=== PATIENT | female | born 1995 | race Two or more races ===

== ENCOUNTER 2017-02-14 21:12 | Emergency (ER) | payer MEDICAID, OTHER ==
[~2017-02-14] VITALS: Ht 162.6 cm; Wt 120.2 kg
[~2017-02-14 21:12] MED LIST: BENADRYL12.5 M1 ORAL; QUETIAPINE FUMA25 MG ORAL
--- NOTE | 2017-02-14 21:48 | Emergency Room Report ---
History of Present Illness General Chief Complaint: Abdominal Pain Source: Patient Present Illness HPI Is a 20-year-old female with no significant past medical history. She presents with chief complaint of nausea vomiting and diarrhea. Onset today. Vomiting is nonbloody nonbilious. Diarrhea is watery. She also noticed suspect her blood in her diarrhea. No recent travel. She did travel to [place] a month ago. Just finished a course of antibiotics for UTI 2 weeks ago. No abdominal pain. Just mild cramp. [place] better now. Denies any other complaint. She said that she's not to she's not sexually active. Allergies: Coded Allergies: PENICILLINS (Verified Allergy, Severe, 05/04/13) Patient History Past Medical History: see triage record, old chart reviewed, psych hx Past Surgical History: other Pertinent Family History: none Social History: Denies: smoking Last Menstrual Period: 3 MONTHS Now: No Immunizations: other Reviewed Nursing Documentation: PMH: Agreed, PSxH: Agreed Nursing Documentation-PMH Hx Asthma: Yes Review of Systems Eye: Denies: blurred vision, eye pain ENT: Denies: ear pain, nose congestion, throat swelling Respiratory: Denies: cough, shortness of breath Cardiovascular: Denies: chest pain, palpitations Gastrointestinal: Reports: diarrhea, nausea, vomiting, Denies: abdominal pain Musculoskeletal: Denies: back pain, joint pain Skin: Denies: rash Neurological: Denies: headache, numbness Endocrine: Denies: increased thirst, increased urine Hematologic/Lymphatic: Denies: easy bruising All Other Systems: negative except mentioned in HPI Physical Exam Vital Signs Date Time Temp Pulse Resp B/P Pulse Ox O2 Delivery O2 Flow Rate FiO2 02/14/17 21:31 97.9 88 16 107/61 99 Room Air vitals normal Sp02 EP Interpretation: reviewed, normal General Appearance: well appearing, no apparent distress, alert Head: normocephalic, atraumatic Eyes: bilateral eye EOMI, bilateral eye PERRL ENT: hearing grossly normal, normal pharynx Neck: full range of motion, supple, no meningismus Respiratory: chest non-tender, lungs clear, normal breath sounds Cardiovascular #1: regular rate, rhythm, no murmur Gastrointestinal: normal bowel sounds, non tender, no mass, no organomegaly, no bruit, non-distended Rectal: other - Small external hemorrhoid at 6 O'clock position. Not thrombosed. No bleeding. Musculoskeletal: back normal, gait/station normal, normal range of motion Psychiatric: mood/affect normal Skin: warm/dry Medical Decision Making Diagnostic Impression: Primary Impression: Nausea vomiting and diarrhea Additional Impressions: Morbid obesity with BMI of 45.0-49.9, adult Rectal bleeding ER Course Patient presents with nausea vomiting diarrhea. Most likely a gastroenteritis. She looks well. Well-hydrated. No evidence of acute abdomen. No abdominal pain. Rectal bleeding is probably secondary to hemorrhoidal bleeding. No evidence of thrombosis. No evidence of traction. We'll discharge home. She tolerated by mouth liquids after Zofran. patient tolerated liquid after Zofran. She did not want to wait for her urine results. She wants to leave now. Last Vital Signs Date Time Temp Pulse Resp B/P Pulse Ox O2 Delivery O2 Flow Rate FiO2 02/14/17 21:31 97.9 88 16 107/61 99 Room Air Status: improved Disposition: HOME, SELF-CARE Condition: Stable Scripts Ondansetron (Zofran) 4 Mg Tablet 4 MG ORAL Q6H Y for Nausea & Vomiting, #10 TAB 0 Refills Prov: KACY ELIZABETH M.D. 02/14/17 Additional Instructions: Followup with your DrAjit in 2 to 3 days. Return to worse. KACY ELIZABETH M.D. Feb 14, 2017 21:48
[2017-02-14 22:05] LABS: APPEARANCE,URINE CLEAR; KETONES,URINE NEGATIVE (NEGATIVE); LEUKOCYTE ESTERASE ,URINE 2+ (NEGATIVE); NITRITE,URINE NEGATIVE (NEGATIVE); PH,URINE 7 (4.5-8.0); PROTEIN,URINE 1+ (NEGATIVE); UROBILINOGEN,URINE NORMAL MG/DL (0.0-1.0)
[2017-02-14] MEDS ORDERED: ZOFRAN4 MG ORAL (22:08)
[2017-02-14 22:16] VITALS: BP 122/71
[2017-02-14 22:17] VITALS: BP 107/61
[2017-02-14 22:22] LABS: BACTERIA,URINE MODERATE /HPF; SQUAMOUS EPITHELIAL CELL,UR FEW /LPF (NONE/OCC)
== END 2017-02-14 22:16 | disposition home or self-care (01) ==
LOC: EDBD 21:12 → EMR 22:16
DX: R11.2 Nausea with vomiting, unspecified (principal); R19.7 Diarrhea, unspecified; K62.5 Hemorrhage of anus and rectum; E66.01 Morbid (severe) obesity due to excess calories; Z68.42 Body mass index [BMI] 45.0-49.9, adult; J45.909 Unspecified asthma, uncomplicated; Z88.0 Allergy status to penicillin
CPT/HCPCS: 81003; 81025; 87086; 87181; 99283

== ENCOUNTER 2017-03-24 14:36 | Emergency (ER) | payer OTHER ==
[~2017-03-24] VITALS: Ht 162.6 cm; Wt 117.9 kg
[~2017-03-24 14:36] MED LIST changes: +ZOFRAN4 MG ORAL
--- NOTE | 2017-03-24 14:54 | Emergency Room Report ---
History of Present Illness General Chief Complaint: Nausea Source: Patient, Medical Record Present Illness HPI 21YOF with nausea/vomiting this morning. Last emesis before she called EMS. No associated abd pain, fever/chills, diarrhea. Still with dysuria and foul smelling discharge. Previous C/section; no other surgical history Went to [place] in January ER visit here February 14: Had UTI, susceptible to Macrobid which was called in Rx for her. Completed Abx Allergies: Coded Allergies: MORPHINE (Unverified Allergy, Severe, Shortness of Breath, 03/24/17) PENICILLINS (Verified Allergy, Severe, 05/04/13) LEVOFLOXACIN (Unverified Allergy, Intermediate, Rash, 03/24/17) SULFAMETHOXAZOLE (Unverified Allergy, Intermediate, Rash, 03/24/17) TRIMETHOPRIM (Unverified Allergy, Intermediate, Rash, 03/24/17) Patient History Past Medical History: none Past Surgical History: Pertinent Family History: none Social History: Denies: alcohol use, drug use, smoking Now: No Immunizations: UTD Reviewed Nursing Documentation: PMH: Agreed, PSxH: Agreed Nursing Documentation-PMH Hx Asthma: Yes History Of Psychiatric Problem: Yes - bi-polar Review of Systems All Other Systems: negative except mentioned in HPI Physical Exam Vital Signs Date Time Temp Pulse Resp B/P Pulse Ox O2 Delivery O2 Flow Rate FiO2 03/24/17 14:30 99.0 100 18 130/86 99 Room Air Sp02 EP Interpretation: reviewed, normal General Appearance: normal inspection, well appearing, no apparent distress, alert, GCS 15, non-toxic, obese Head: normocephalic, atraumatic Eyes: bilateral eye EOMI, bilateral eye PERRL ENT: normal ENT inspection, hearing grossly normal, normal voice Neck: normal inspection, full range of motion, supple, no bony tend Respiratory: normal inspection, lungs clear, normal breath sounds, no respiratory distress, no retraction, no wheezing Cardiovascular #1: regular rate, rhythm, no edema Gastrointestinal: normal inspection, normal bowel sounds, non tender, soft, no guarding, no hernia Genitourinary: no CVA tenderness Musculoskeletal: normal inspection, back normal, normal range of motion, Claribel' s Sign negative Neurologic: normal inspection, alert, oriented x3, responsive, color blender III-XII nml as tested, motor strength/tone normal, speech normal Psychiatric: normal inspection, judgement/insight normal, mood/affect normal Skin: normal inspection, normal color, no rash, warm/dry Medical Decision Making Diagnostic Impression: Primary Impression: Nausea and vomiting in adult patient Additional Impression: Dysuria ER Course 21YOF with nausea, dysuria - VSS. Afebrile - Abd non-focal - tolerating PO in ED. No vomiting. - Not - UA with some bacteria. No LE or nitrites - Will tx with flagyl for ?BV PMD followup DC home Last Vital Signs Date Time Temp Pulse Resp B/P Pulse Ox O2 Delivery O2 Flow Rate FiO2 03/24/17 14:30 99.0 100 18 130/86 99 Room Air Status: improved Disposition: HOME, SELF-CARE Scripts Ondansetron Odt* (ZOFRAN ODT*) 4 Mg Tab.rapdis 4 MG ORAL BID Y for Nausea & Vomiting for 7 Days, #14 TAB 0 Refills Prov: BARBARA BAUTISTA M.D. 03/24/17 Metronidazole* (FLAGYL*) 500 Mg Tablet 500 MG ORAL BID for 7 Days, #14 TAB Prov: BARBARA BAUTISTA M.D. 03/24/17 BARBARA BAUTISTA M.D. Mar 24, 2017 14:54
[2017-03-24 15:15] LABS: APPEARANCE,URINE CLEAR; KETONES,URINE NEGATIVE (NEGATIVE); LEUKOCYTE ESTERASE ,URINE 1+ (NEGATIVE); NITRITE,URINE NEGATIVE (NEGATIVE); PH,URINE 6 (4.5-8.0); PROTEIN,URINE 2+ (NEGATIVE); UROBILINOGEN,URINE NORMAL MG/DL (0.0-1.0)
[2017-03-24 15:24] LABS: BACTERIA,URINE FEW /HPF; RBC,URINE 0-2 /HPF (0 - 2); SQUAMOUS EPITHELIAL CELL,UR FEW /LPF (NONE/OCC)
[2017-03-24] MEDS ORDERED: ZOFRAN ODT4 MG ORAL (15:47)
[2017-03-24] MEDS ORDERED: METRONIDAZOLE500 MG ORAL (15:47)
[2017-03-24 16:10] VITALS: BP 121/79
== END 2017-03-24 16:09 | disposition home or self-care (01) ==
LOC: EDBD 14:36 → EMR 14:52
DX: R11.2 Nausea with vomiting, unspecified (principal); R30.0 Dysuria; Z88.2 Allergy status to sulfonamides; Z88.6 Allergy status to analgesic agent; Z88.0 Allergy status to penicillin; J45.909 Unspecified asthma, uncomplicated
CPT/HCPCS: 80300; 81003; 81025; 96372; 99284; J2405

== ENCOUNTER 2017-09-24 13:51 | Emergency (ER) | payer OTHER ==
[~2017-09-24] VITALS: Ht 162.6 cm; Wt 127.0 kg
[~2017-09-24 13:51] MED LIST changes: +ABILIFY2 MG ORAL; +ALBUTEROL2.5 MG/3 M INH; +LEXAPRO10 MG ORAL; +METRONIDAZOLE500 MG ORAL; +ZOFRAN ODT4 MG ORAL
--- NOTE | 2017-09-24 14:41 | Emergency Room Report ---
History of Present Illness General Chief Complaint: Upper Respiratory Illness Source: EMS Present Illness HPI Pt. presents to the ED c/o cough, nasal congestion, subjective fevers, and chills x 2 days. pt. reports increased phlegm , sore throat and painful coughing which she rates as 6/10 in severity. pt. reports multiple ill contacts. pt. denies taking OTC medications for her symptoms. pt. did not have flu vaccination this season. denies body aches. Denies wheezing, Denies neck pain or stiffness, photophobia, or headaches.Denies CP, Palpitations, LOC, AMS, dizziness, Changes in Vision, Sensation, paresthesias, or a sudden severe headache. Allergies: Coded Allergies: LEVOFLOXACIN (Verified Allergy, Unknown, 09/24/17) MORPHINE (Verified Allergy, Unknown, 09/24/17) PENICILLINS (Verified Allergy, Unknown, 09/24/17) SULFAMETHOXAZOLE (Verified Allergy, Unknown, 09/24/17) TRIMETHOPRIM (Verified Allergy, Unknown, 09/24/17) Patient History Past Medical History: see triage record, psych hx - anxiety Past Surgical History: none Pertinent Family History: none Last Menstrual Period: Depoprovera Now: No Reviewed Nursing Documentation: PMH: Agreed, PSxH: Agreed Nursing Documentation-PMH Hx Asthma: Yes Review of Systems All Other Systems: negative except mentioned in HPI Physical Exam Vital Signs Date Time Temp Pulse Resp B/P (MAP) Pulse Ox O2 Delivery O2 Flow Rate FiO2 09/24/17 13:46 98.6 111 22 138/89 99 Room Air Sp02 EP Interpretation: reviewed, normal General Appearance: no apparent distress, alert, GCS 15, non-toxic Head: normocephalic, atraumatic ENT: hearing grossly normal, normal voice Neck: full range of motion, no meningismus, no bony tend Respiratory: chest non-tender, lungs clear, normal breath sounds, speaking full sentences Cardiovascular #1: regular rate, rhythm Musculoskeletal: back normal, gait/station normal, normal range of motion, non- tender Neurologic: alert, oriented x3, responsive, motor strength/tone normal, sensory intact, speech normal, grossly normal Psychiatric: judgement/insight normal, other - Very Flat affect. Skin: normal color, no rash, warm/dry, well hydrated Lymphatic: no adenopathy Medical Decision Making PA Attestation Dr. Richardson is my supervising Physician whom patient management has been discussed with. Diagnostic Impression: Primary Impression: Upper respiratory infection Qualified Codes: J06.9 - Acute upper respiratory infection, unspecified ER Course Pt. presents to the ED c/o cough, nasal congestion, subjective fevers, and chills x 2 days. pt. reports increased phlegm , sore throat and painful coughing which she rates as 6/10 in severity. pt. reports multiple ill contacts. pt. denies taking OTC medications for her symptoms. pt. did not have flu vaccination this season. denies body aches. Denies wheezing, Denies neck pain or stiffness, photophobia, or headaches.Denies CP, Palpitations, LOC, AMS, dizziness, Changes in Vision, Sensation, paresthesias, or a sudden severe headache. Ddx considered but are not limited to URI, pneumonia, PE, strep pharyngitis, meningitis. Vital signs: Pt. is afebrile, the remaining VS are WNL H&PE are most consistent with URI- no meningeal signs, oropharynx is not involved, no evidence of bacterial infection at this time. ORDERS: none required at this time, the diagnosis is clinical ED INTERVENTIONS: None required at this time. --PT. EDUCATION: Discussed antibiotic resistance with inappropriate prescribing of antibiotics for viral illnesses. Discussed signs and symptoms to indicate viral illness versus bacterial illness. DISCHARGE: At this time pt. is stable for d/c to home. Will provide printed patient care instructions, and any necessary prescriptions. Care plan and follow up instructions have been discussed with the patient prior to discharge. Last Vital Signs Date Time Temp Pulse Resp B/P (MAP) Pulse Ox O2 Delivery O2 Flow Rate FiO2 09/24/17 13:53 111 22 Room Air 09/24/17 13:46 98.6 138/89 99 Disposition: HOME, SELF-CARE Condition: Stable Scripts Acetaminophen* (TYLENOL EXTRA STRENGTH*) 500 Mg Tablet 500 MG ORAL Q6H Y for Mild Pain/Temp > 100.5, #20 TAB 0 Refills Prov: Ines Starks P.A. 09/24/17 Guaifenesin (Guaifenesin) 1,200 Mg Tab.er.12h 1200 MG PO BID, #20 TAB Prov: Ines Starks P.A. 09/24/17 D-Methorphan Hb/Prometh Hcl* (PROMETHAZINE-DM SYRUP*) 118 Ml Syrup 5 ML ORAL Q6H Y for For Cough, #120 ML 0 Refills Prov: Ines Starks 09/24/17 Patient Instructions: Upper Respiratory Infection, Adult Additional Instructions: Take medications as directed. Follow up with a Primary Care Provider in 3-5 days, even if your symptoms have resolved. --Please review list of primary care clinics, if you do not already have a primary care provider Return sooner to ED if new symptoms occur, or current symptoms become worse. Do not drink alcohol, drive, or operate heavy machinery while taking Cough Syrup as this may cause drowsiness. - Please note that this Emergency Department Report was dictated using [employer] pharmacy technician technology software, occasionally this can lead to erroneous entry secondary to interpretation by the dictation equipment. Ines Starks Sep 24, 2017 14:41
[2017-09-24] MEDS ORDERED: TYLENOL EXTRA500 MG ORAL (14:45)
[2017-09-24] MEDS ORDERED: GUAIFENESIN1200 MG PO (14:45)
[2017-09-24] MEDS ORDERED: PROMETHAZINE-D118 ML ORAL (14:45)
[2017-09-24 14:53] VITALS: BP 138/89
== END 2017-09-24 14:53 | disposition home or self-care (01) ==
LOC: EDBD 13:51 → MERGE 14:00 → EMR 14:00
DX: J06.9 Acute upper respiratory infection, unspecified (principal); J45.909 Unspecified asthma, uncomplicated; Z88.2 Allergy status to sulfonamides; Z88.5 Allergy status to narcotic agent; Z88.0 Allergy status to penicillin
CPT/HCPCS: 99284

== ENCOUNTER 2017-10-01 22:53 | Emergency (ER) | payer OTHER ==
[~2017-10-01] VITALS: Ht 162.6 cm; Wt 131.5 kg
[~2017-10-01 22:53] MED LIST changes: +GUAIFENESIN1200 MG PO; +PROMETHAZINE-D118 ML ORAL; +TYLENOL EXTRA500 MG ORAL
[2017-10-01] MEDS ORDERED: IBUPROFEN600 MG ORAL (23:49)
[2017-10-01] MEDS ORDERED: ZOFRAN ODT4 MG ORAL (23:49)
[2017-10-01] MEDS ORDERED: AZITHROMYCIN250 MG ORAL (23:49)
[2017-10-02 00:06] VITALS: BP 124/84
[2017-10-02 00:18] VITALS: BP 124/84
--- NOTE | 2017-10-02 04:56 | Emergency Room Report ---
History of Present Illness General Chief Complaint: Vomiting Source: Patient, EMS Present Illness HPI 21-year-old female presents ED evaluation. Patient brought in by EMS complaining of headache with left ear pain x4 days. Vomiting x2 days. The pain as throbbing, 8/10, nonradiating. Denies fevers chills. Denies cough. Denies chest pain or shortness of breath. Sick contacts or recent travel. No other aggravating relieving factors. Denies any other associated symptoms Allergies: Coded Allergies: MORPHINE (Unverified Allergy, Severe, Shortness of Breath, 03/24/17) PENICILLINS (Verified Allergy, Severe, 05/04/13) LEVOFLOXACIN (Unverified Allergy, Intermediate, Rash, 03/24/17) SULFAMETHOXAZOLE (Unverified Allergy, Intermediate, Rash, 03/24/17) TRIMETHOPRIM (Unverified Allergy, Intermediate, Rash, 03/24/17) Patient History Past Medical History: DM, asthma Past Surgical History: none Pertinent Family History: none Social History: Denies: smoking, alcohol use, drug use Last Menstrual Period: last month Now: No Immunizations: UTD Reviewed Nursing Documentation: PMH: Agreed, PSxH: Agreed Nursing Documentation-PMH Past Medical History: No History, Except For Hx Asthma: Yes Hx Diabetes: Yes - Pre-diabetic, Enlarged Liver History Of Psychiatric Problem: Yes Review of Systems All Other Systems: negative except mentioned in HPI Physical Exam Vital Signs Date Time Temp Pulse Resp B/P (MAP) Pulse Ox O2 Delivery O2 Flow Rate FiO2 10/01/17 22:48 98.2 102 16 126/80 96 Room Air Sp02 EP Interpretation: reviewed, normal General Appearance: no apparent distress, alert, GCS 15, non-toxic, obese Head: normocephalic, atraumatic Eyes: bilateral eye normal inspection, bilateral eye PERRL ENT: hearing grossly normal, normal pharynx, no angioedema, normal voice, other - L TM erythematous, poor light reflex Neck: full range of motion, supple/symm/no masses Respiratory: chest non-tender, lungs clear, normal breath sounds, speaking full sentences Cardiovascular #1: regular rate, rhythm, no edema Cardiovascular #2: 2+ carotid (R), 2+ carotid (L), 2+ radial (R), 2+ radial (L) , 2+ dorsalis pedis (R), 2+ dorsalis pedis (L) Gastrointestinal: normal bowel sounds, non tender, soft, non-distended, no guarding, no rebound Rectal: deferred Genitourinary: normal inspection, no CVA tenderness Musculoskeletal: back normal, gait/station normal, normal range of motion, non- tender Neurologic: alert, oriented x3, responsive, motor strength/tone normal, sensory intact, speech normal Psychiatric: judgement/insight normal, memory normal, mood/affect normal, no suicidal/homicidal ideation Reflexes: 3+ bicep (R), 3+ bicep (L), 3+ tricep (R), 3+ tricep (L), 3+ knee (R) , 3+ knee (L) Skin: normal color, no rash, warm/dry, well hydrated Lymphatic: no adenopathy Medical Decision Making Diagnostic Impression: Primary Impression: Otitis media Qualified Codes: H66.90 - Otitis media, unspecified, unspecified ear ER Course Hospital Course 21-year-old F presents to ED with pain L ear. no fever. vomiting Differential diagnoses include: TM perforation, otitis externa, otitis media Clinical course Patient placed on stretcher. After initial history, physical exam reveals a female in no acute distress. L TM poor light reflex, erythematous. Remainder of physical exam unremarkable. clinical findings consistent with otitis media given zofran. motrin in ED Diagnosis - otitis media Stable and discharged to home with Rx zofran, amoxicillin, motrin. Followup with PMD. Return to ED if symptoms recur or worsen Last Vital Signs Date Time Temp Pulse Resp B/P (MAP) Pulse Ox O2 Delivery O2 Flow Rate FiO2 10/02/17 00:18 98.2 74 16 124/84 96 Room Air Status: improved Disposition: HOME, SELF-CARE Condition: Stable Scripts Ibuprofen* (MOTRIN*) 600 Mg Tablet 600 MG ORAL Q8H Y for For Pain, #30 TAB 0 Refills Prov: MILY RODRIGUEZ M.D. 10/01/17 Ondansetron Odt* (ZOFRAN ODT*) 4 Mg Tab.rapdis 4 MG ORAL Q6H Y for Nausea & Vomiting, #30 TAB 0 Refills Prov: MILY RODRIGUEZ M.D. 10/01/17 Azithromycin* (ZITHROMAX*) 250 Mg Tablet 250 MG ORAL DAILY, #6 TAB 0 Refills Take two tablets by mouth today, then take one tablet by mouth daily for four days Prov: MILY RODRIGUEZ M.D. 10/01/17 Referrals: [facility]ERR[facility] (PCP) Patient Instructions: Otitis Media, Adult, [id number] MILY RODRIGUEZ M.D. Oct 02, 2017 04:56
== END 2017-10-02 00:19 | disposition home or self-care (01) ==
LOC: EDBD 22:53 → EMR 23:25
DX: H66.90 Otitis media, unspecified, unspecified ear (principal); J45.909 Unspecified asthma, uncomplicated; R73.03 Prediabetes; Z88.6 Allergy status to analgesic agent; Z88.0 Allergy status to penicillin; Z88.1 Allergy status to other antibiotic agents; Z88.2 Allergy status to sulfonamides
CPT/HCPCS: 96372; 99283; J2405